=== PATIENT | male | born 1955 | race Caucasian/White ===

== ENCOUNTER 2021-02-09 21:13 | Emergency (ER) | payer MEDICARE, SELFPAY ==
[2021-02-09 21:27] VITALS: BP 136/84; PULSE 100; RESP 24; TEMP 37.3; O2SAT 90; BMI 30.7
[2021-02-09 21:48] VITALS: BP 154/116; PULSE 95; O2SAT 91
[2021-02-09 22:27] VITALS: PULSE 93; RESP 16; TEMP 37.2; O2SAT 93
[2021-02-09 22:58] VITALS: BP 141/83; PULSE 86; RESP 20; O2SAT 94
--- NOTE | 2021-02-09 23:04 | ED_ITS ---
HPI - General Adult General: Chief complaint: COVID symptoms Stated complaint: covid +/sob Time Seen by Provider: 02/09/21 22:04 History of Present Illness: HPI narrative: CC: Shortness of breath, fever and generalized weakness HPI: This is a 65 yo patient w/ no PMH presenting to the ED with malaise, generalized weakness, cough sputum production, and fever at home x 7days. Patient went to [facility] and was diagnosed with COVID infection, discharged on prednisone. Since discharge 1 day ago, patient has not noticed improvement in symptoms and presents for evaluation. is sick at home with covid. Denies chest pain, N/V, diaphoresis. Denies any pleuritic chest pain, recent surgery/immobilization/travel, or hematemesis or hx of VTE in the past. Onset: 7 days ago Duration: ongoing for the last 7 days Location: home Severity: moderate Review of Systems Narrative: Constitutional: +subjective fever, +generalized weakness HEENT: No vision changes CV: No chest pain, no palpitations PULM: +cough, +dyspnea. GI: No abdominal pain, no N/V/D. : No dysuria MSKEL: No muscle pain SKIN: No new rashes, no lesions. NEURO: No headache, no focal weakness. HEME: No visible bruises PSYCH: Normal mood Physical Exam Narrative: EXAM NARRATIVE: Head: Atraumatic Eyes: PERRL, conjunctiva without injection ENT: Mucous membrane moist NECK: Supple without lymphadenopathy LUNGS: Coarse lung sounds, CV: RRR ABDOMEN: Soft, nontender EXTREMITY: Normal ROM SKIN: No rash or erythema NEURO: Awake and alert. No focal motor deficits. PSYCH: Normal mood and affect. Course Vital Signs: Vital signs: Vital Signs Temperature 98.9 F 02/10/21 04:59 Pulse Rate 76 02/10/21 04:59 Respiratory Rate 20 H 02/10/21 04:59 Blood Pressure 149/66 02/10/21 04:59 Pulse Oximetry 94 02/10/21 04:59 MDM - General Adult MDM Narrative: Medical decision making narrative: 65yo patient presenting to the ED with shortness of breath, cough, and malaise concerning for pneumonia with findings of fever, coarse breath sounds, and tachypnea. Workup today includes XR chest Defer lab work at this time given that the patient is well appearing with stable vital signs and without recent hospitalization or care facility stay. Given History, Exam, and Workup presentation most consistent with pneumonia.Presentation not consistent with PE, COPD exacerbation, Pneumothorax, TB, Atypical ACS, Esophageal Rupture, Toxic Exposure, Foreign Body Airway Obstruction. Workup: CXR Chest, COVID antigen/ COVID PCR send out Intervention: Tylenol 1gram, PO challenge, serial reassessment, oxygen, de cadron, remdesivir [12:39] On reassessment, [XR findings of ground-glass opacity. Covid test positive today. Findings consistent with viral pneumonia, suspected COVID. Afebrile currently. Patient continues to sat at 94% on 5L oxygen. Given concerns for possible respiratory decompensation, I have offered patient admission for serial/close observation in the emergency room. At 1:30, patient declined admission citing strong desire to go home on home oxygen. I have discussed the risks of leaving hospital today including risks of sudden pulmonary decompensation leading to severe respiratory distress and even . Patient verbalizes understanding the consequence of the risks of leaving the hospital today and alternative including staying for serial observation. I have offered patient outpatient oxygen tank/supply and portable pulse ox with proper instruction to use at home. Patient agrees to monitor oxygen saturation and to come back to the ED if there is any drops in pulse ox reading despite oxygen use. In addition, I have given patient strict follow up with PCP in 24 hrs for reevalutaion. Patient verbalizes understanding of all components of our discussion today and reassures me of follow up with PCP and close monitoring. Lab Data: Labs: Lab Results 02/09/21 Range/Units 23:33 SARS-CoV-2 Ag (Rap id) Positive H (Negative) Imaging Data^: Other Imaging: Radiologist's impression: [address] [id number] ReportSigned Patient: Nunu Hayward #: [id number]: 7Acct#:[id number]/Sex: 65 / MADM Date: 02/09/21Loc: ERRoom/Bed:Attending Dr: Ordering Provider/Ordering MD: Derian Underwood MD Date of Service: 02/09/21 Procedure(s): XR chest 1V portable [id number] Accession Number(s): [id number] Report Number: [id number] PROCEDURE INFORMATION: Exam: XR Chest Exam date and time: 02/09/2021 11:22 PM Age: 65 years old Clinical indication: Cough and fever and shortness of breath; Prior surgery; Surgery type: Lung lobectomy; Patient HX: HX of liver, lung, and colon cancer; Additional info: Evaluate for covid TECHNIQUE: Imaging protocol: XR of the chest. Views: 1 view. COMPARISON: No relevant prior studies available. FINDINGS: Lungs: Surgical clips in the left hilum. Coarse reticular interstitial opacities. Pleural spaces: Unremarkable. No pleural effusion. No pneumothorax. Heart/Mediastinum: Cardiac silhouette is unremarkable. Bones/joints: Unremarkable. XR/XR chest 1V portable [id number] IMPRESSION: Prominent interstitial lung changes. Atypical pneumonia is in the differential such as viral pneumonia process. Dictated By:Ayesha Davies By:Ayesha Davies Date/Time:02/10/21 0043DD/ 004 Discharge Plan Discharge Patient Disposition: Home Clinical Impression: Suspected severe acute respiratory syndrome coronavirus 2 (SARS-CoV-2) infection Condition: Stable Discharge Orders: Discharge ED (Routine); Ordered 02/10/21 Ordered By: Derian Underwood Other Ambulatory Orders: DME: Oxygen (Order) Location: None Selected Ordered By: Derian Underwood Discharge Diet: Regular Discharge Activity: Resume usual activity Patient Instructions: Severe Acute Respiratory Syndrome (SARS) (ED) Activity Restrictions/Additional Instructions: Use your home oxygen as needed. Come back to the emergency room if your symptoms worsen, if you have any new or concerning complaints, have any other issues. Coding Level of Care Code ED Accounts Receivable Accountant for Pete Milan
--- NOTE | 2021-02-09 23:22 | XRR_ITS ---
PROCEDURE INFORMATION: Exam: XR Chest Exam date and time: 02/09/2021 11:22 PM Age: 65 years old Clinical indication: Cough and fever and shortness of breath; Prior surgery; Surgery type: Lung lobectomy; Patient HX: HX of liver, lung, and colon cancer; Additional info: Evaluate for covid TECHNIQUE: Imaging protocol: XR of the chest. Views: 1 view. COMPARISON: No relevant prior studies available. FINDINGS: Lungs: Surgical clips in the left hilum. Coarse reticular interstitial opacities. Pleural spaces: Unremarkable. No pleural effusion. No pneumothorax. Heart/Mediastinum: Cardiac silhouette is unremarkable. Bones/joints: Unremarkable. XR/XR chest 1V portable [id number] IMPRESSION: Prominent interstitial lung changes. Atypical pneumonia is in the differential such as viral pneumonia process.
[2021-02-09 23:41] VITALS: BP 163/111; PULSE 84; RESP 20; O2SAT 92
[2021-02-09] MEDS: acetaminophen 500 mg Tablet 1000 MG PO (23:45)
[2021-02-10 00:08] LABS: SARS Covid-2 Antigen Positive (Negative)
[2021-02-10] MEDS: dexamethasone 10 mg/mL INJ 6 MG IVP (01:03)
[2021-02-10] MEDS: remdesivir 200 MG in sodium chloride 0.9% (100 ml) 100 ML 100 MG IV (01:10)
[2021-02-10 01:25] VITALS: BP 160/101; PULSE 77; RESP 20; O2SAT 94
[2021-02-10 03:00] VITALS: BP 148/82; PULSE 69; RESP 28; O2SAT 94
[2021-02-10 04:59] VITALS: BP 149/66; PULSE 76; RESP 20; TEMP 37.2; O2SAT 94
== END 2021-02-10 05:01 | disposition home or self-care (01) ==
PROVIDERS: Emergency Provider Emergency Medicine
DX: U07.1 COVID-19 (principal)
CPT/HCPCS: 71045; 87426; 96365; 96375; 99284; J1100

== ENCOUNTER 2021-02-15 11:50 | Inpatient (IN) | payer MEDICARE, SELFPAY ==
[2021-02-15] VITALS (12 sets, daily range): BP systolic 96–146; BP diastolic 67–91; PULSE 68–107; RESP 16–22; TEMP 36.7–37.1; O2SAT 88–95
--- NOTE | 2021-02-15 12:30 | XR_ITS ---
WS: [id number] PORTABLE CHEST HISTORY: COVID, SOB COMPARISON: 02/09/2021 Increasing areas of consolidations or large portion of the RIGHT lung, greatest in the middle and low er lung lawler. Additional increasing opacifications throughout the mid and lower LEFT lung but to a lesser extent. No pleural effusion or pneumothorax. Cardiac size: Normal. Mediastinum/Aorta: Mild atherosclerosis aorta. Number surgical clips noted at the LEFT hilum. No osseous abnormality seen. XR/XR chest 1V portable [id number] IMPRESSION: Significant increase in bilateral pulmonary opacifications. Consider pneumoniti s and pneumonia.
--- NOTE | 2021-02-15 12:31 | ED_ITS ---
HPI - COVID General: Chief Complaint: Shortness of Breath/Dyspnea Stated Complaint: SOB, covid +, low o2 Time Seen by Provider: 02/15/21 12:14 Source: patient Mode of arrival: ambulatory Limitations: no limitations Triage information: Has fever, cough or shortness of breath . Exposure to COVID + person last 14 days History of Present Illness: HPI Narrative: Patient is a 65-year-old male who presents to ED today with a complaint of worsening shortness of breath. Patient tested positive for COVID on 02/09/2021 here in the ED. He was offered admission at that time as he was requiring 5L O2 via NC but patient declined and wanted to go home. He states since that time SOB is worsening and states the 5L is only allowing him to sat at 88%. He states COVID symptoms first started around 8/2. PMH significant for HTN. He reports body aches. No fevers. Has some mild chest pains. MD complaint: known COVID positive Prior covid testing: yes, results known Prior testing date: 02/09/21 COVID 19 common symptoms: positive non-productive cough, dyspnea, fatigue and body aches; negative fever(s), chills, headache(s), throat pain, nasal congestion, nausea, vomiting or diarrhea COVID 19 other sytmptoms: positive chest pain and requiring more oxygen Onset (ago): day(s) Severity: moderate and slowly worsening Pertinent comorbid conditions: hypertension Treatment prior to arrival: oxygen COVID Results: SARS-CoV-2 Antigen (Rapid) Positive (Negative) H 02/09/21 23:33 02/09/21 Review of Systems Const: Reports: body aches and fatigue; Denies: fever(s), chills, change in appetite or change in weight Eyes: Denies: change in vision ENMT: Denies: throat pain, odynophagia, nasal discharge or nasal congestion Card: Reports: chest pain and dyspnea on exertion; Denies: palpitations, irregular heart rhythm, edema, swelling of feet/ankles, lightheadedness, syncope, pre-syncope, leg pain with exertion or acrocyanosis Resp: Reports: dyspnea and non-productive cough; Denies: wheezing or hemoptysis GI: Denies: abdominal pain, nausea, vomiting or diarrhea Musc: Denies: neck pain, back pain, extremity pain or joint pain Skin/Breast: Denies: rash Neuro: Denies: headache(s), numbness in extremities, weakness in extremities or sensory changes Physical Exam Const: COMMON NORMALS: no acute distress, average body habitus, patient oriented x3, no limitations, healthy appearing, alert and well nourished GENERAL APPEARANCE: cooperative ORIENTATION/CONSCIOUSNESS: Yes awake, Yes oriented to person, Yes oriented to place and Yes oriented to time OTHER: pt is hypoxic but does not appear in any significant respiratory distress HENMT: COMMON NORMALS: normocephalic and atraumatic HEAD & SCALP: normocephalic and atraumatic Resp: COMMON NORMALS: normal respiratory effort, No use of accessory muscles and clear to auscultation bilaterally EFFORT & INSPECTION: Yes able to speak in complete sentences and Yes tachypneic (mild) AUSCULTATION: clear to auscultation bilaterally Cardio: COMMON NORMALS: regular rhythm RATE: tachycardic (mild) RHYTHM: regular rhythm GI: COMMON NORMALS: Normal to inspection, nondistended, normoactive bowel sounds present, Soft to palpation, non-tender, No hepatosplenomegaly present and no masses PALPATION: Yes Soft to palpation and Yes No hepatosplenomegaly present Extremity: COMMON NORMALS: capillary refill normal, no clubbing, cyanosis or edema, no calf tenderness and no pedal edema Neuro: VENKAT COMA SCALE: document GCS findings Clayton coma scale eye opening: Spontaneous Venkat coma scale verbal response: Orientated Clayton coma scale motor response: Obey commands Venkat coma scale total score: 15 COMMON NORMALS: patient oriented x3 SENSORIUM/ORIENTATION: Yes alert, Yes oriented to person, Yes oriented to place and Yes oriented to time Skin: COMMON NORMALS: no rashes or lesions noted GENERAL SKIN EXAM: no rashes or lesions noted TRAUMA: no lacerations or abrasions Course ED course: Upon arrival patient satting in mid 80s with 5-6L O2 NC. He was placed on 15L non-rebreather and sats hovering around 90%. RT contacted and will come try heated high flow Consultations: Consultation #1: Dr. Ramirez-accepts admission Vital Signs: Vital signs: Vital Signs Temperature 98.8 F 02/15/21 12:07 Pulse Rate 89 02/15/21 13:25 Respiratory Rate 17 08/18/21 13:25 Blood Pressure 130/89 08/18/21 13:25 Pulse Oximetry 92 02/15/21 13:25 MDM - COVID MDM Narrative: Medical decision making narrative: Patient requiring heated high flow oxygen to maintain saturations. CXR is significantly worse than previous. At this time patient requires hospitalization for further treatment. His D-dimer is greater than 20. CTA pending as CT is currently awaiting an incoming stroke patient. He was given Lovenox here. Spoke with Dr. River who agrees with work up and plan for patient. Spoke to hospitalist Dr. Ramirez who accepts admission. Lab Data: Labs: Lab Results 02/15/21 02/15/21 02/15/21 Range/Units 12:30 12:30 12:30 WBC 12.7 H (4.0-10.0) 10^3/ uL RBC 4.97 (4.1-5.3) 10^6/u L Hgb 15.8 (11.7-16.6) g/dL Hct 47.1 (42.0-52.0) % MCV 94.8 H (80-94) fl MCH 31.8 (28.0-34.0) pg MCHC 33.5 (30.0-36.0) g/dL RDW 12.6 (12.1-15.1) % Plt Count 281 (130-400) 10^3/c mm MPV 10.0 (7.4-10.4) fL Neut % (Auto) 86.0 % Lymph % (Auto) 5.4 % [place] % (Auto) 4.5 % Eos % (Auto) 1.6 % Baso % (Auto) 0.4 % Neut # (Auto) 10.95 H (1.8-7.7) 10^3/u L Lymph # (Auto) 0.7 L (0.8-4.8) 10^3/u L [place] # (Auto) 0.6 (0.2-0.9) 10^3/u L Eos # (Auto) 0.2 (0.0-0.8) 10^3/u L Baso # (Auto) 0.1 (0.0-0.1) 10^3/u L Nucleated RBC % (a uto) 0 % Nucleated RBCs # 0.0 /100WBC PT (12.1-14.9) SECO NDS INR (0.8-1.2) APTT (23.9-36.7) SECO NDS Fibrinogen (174-498) mg/dL D-Dimer (0-0.59) ug/mIFE U Specimen Type Sample Site ABG pH (7.35-7.45) ABG pCO2 (35-45) mmHg ABG pO2 (80.0-100.0) mmH g ABG HCO3 (22-26) mmol/L ABG O2 Saturation ABG Base Excess (-2.0-2.0) mmol/ L Tanner Test A-a O2 Gradient (5-10) mmHg Hematocrit (42-52) % Hgb O2 Saturation (95-100) % Carboxyhemoglobin (0.4-20.1) %THgb Methemoglobin (0.4-1.5) % Total Hemoglobin (14-18) g/dL Ionized Calcium (1.1-1.4) mmol/L O2 Delivery Device O2 Liters/Min % FiO2 % Attending Physician ID Sodium 141 (136-145) mmol/L Potassium 3.7 (3.5-5.1) mmol/L Chloride 105 (98-107) mmol/L Carbon Dioxide 26 (22-29) mmol/L Anion Gap 13.7 (5-19) BUN 25 H (8-23) mg/dL Creatinine 0.8 (0.7-1.2) mg/dL GFR Calculation 97.3 (90-130) mL/min Glucose 124 H (65-115) mg/dL Calculated Osmolal ity 298 H (285-295) mOsm/k g Lactic Acid 2.0 (0.5-2.2) mmol/L Calcium 8.4 L (8.5-10.5) mg/dL Ferritin 1155 H (30-400) ng/mL Total Bilirubin 0.2 (0.15-1.2) mg/dL AST 27 (0-40) U/L ALT 42 H (0-41) U/L Alkaline Phosphata se 145 H (40-130) IU/L Troponin T Gen 5 n g/L (0-15) ng/L C-Reactive Protein 78.9 H (0.0-4.9) mg/L NT-Pro-B Natriuret Pep (0-125) pg/mL Total Protein 6.5 L (6.6-8.7) g/dL Albumin 3.1 L (3.5-5.2) g/dL Globulin 3.4 (1.3-4.6) g/dL Procalcitonin 0.07 (0-0.5) ng/mL 02/15/21 02/15/21 02/15/21 Range/Units 12:30 12:30 12:30 WBC (4.0-10.0) 10^3/ uL RBC (4.1-5.3) 10^6/u L Hgb (11.7-16.6) g/dL Hct (42.0-52.0) % MCV (80-94) fl MCH (28.0-34.0) pg MCHC (30.0-36.0) g/dL RDW (12.1-15.1) % Plt Count (130-400) 10^3/c mm MPV (7.4-10.4) fL Neut % (Auto) % Lymph % (Auto) % [place] % (Auto) % Eos % (Auto) % Baso % (Auto) % Neut # (Auto) (1.8-7.7) 10^3/u L Lymph # (Auto) (0.8-4.8) 10^3/u L [place] # (Auto) (0.2-0.9) 10^3/u L Eos # (Auto) (0.0-0.8) 10^3/u L Baso # (Auto) (0.0-0.1) 10^3/u L Nucleated RBC % (a uto) % Nucleated RBCs # /100WBC PT 13.90 (12.1-14.9) SECO NDS INR 1.04 (0.8-1.2) APTT 23.8 L (23.9-36.7) SECO NDS Fibrinogen 379 (174-498) mg/dL D-Dimer >= 20.00 H (0-0.59) ug/mIFE U Specimen Type Sample Site ABG pH (7.35-7.45) ABG pCO2 (35-45) mmHg ABG pO2 (80.0-100.0) mmH g ABG HCO3 (22-26) mmol/L ABG O2 Saturation ABG Base Excess (-2.0-2.0) mmol/ L Tanner Test A-a O2 Gradient (5-10) mmHg Hematocrit (42-52) % Hgb O2 Saturation (95-100) % Carboxyhemoglobin (0.4-20.1) %THgb Methemoglobin (0.4-1.5) % Total Hemoglobin (14-18) g/dL Ionized Calcium (1.1-1.4) mmol/L O2 Delivery Device O2 Liters/Min % FiO2 % Attending Physician ID Sodium (136-145) mmol/L Potassium (3.5-5.1) mmol/L Chloride (98-107) mmol/L Carbon Dioxide (22-29) mmol/L Anion Gap (5-19) BUN (8-23) mg/dL Creatinine (0.7-1.2) mg/dL GFR Calculation (90-130) mL/min Glucose (65-115) mg/dL Calculated Osmolal ity (285-295) mOsm/k g Lactic Acid (0.5-2.2) mmol/L Calcium (8.5-10.5) mg/dL Ferritin (30-400) ng/mL Total Bilirubin (0.15-1.2) mg/dL AST (0-40) U/L ALT (0-41) U/L Alkaline Phosphata se (40-130) IU/L Troponin T Gen 5 n g/L 21 H (0-15) ng/L C-Reactive Protein (0.0-4.9) mg/L NT-Pro-B Natriuret Pep 404 H (0-125) pg/mL Total Protein (6.6-8.7) g/dL Albumin (3.5-5.2) g/dL Globulin (1.3-4.6) g/dL Procalcitonin (0-0.5) ng/mL 02/15/21 Range/Units 13:16 WBC (4.0-10.0) 10^3/ uL RBC (4.1-5.3) 10^6/u L Hgb (11.7-16.6) g/dL Hct (42.0-52.0) % MCV (80-94) fl MCH (28.0-34.0) pg MCHC (30.0-36.0) g/dL RDW (12.1-15.1) % Plt Count (130-400) 10^3/c mm MPV (7.4-10.4) fL Neut % (Auto) % Lymph % (Auto) % [place] % (Auto) % Eos % (Auto) % Baso % (Auto) % Neut # (Auto) (1.8-7.7) 10^3/u L Lymph # (Auto) (0.8-4.8) 10^3/u L [place] # (Auto) (0.2-0.9) 10^3/u L Eos # (Auto) (0.0-0.8) 10^3/u L Baso # (Auto) (0.0-0.1) 10^3/u L Nucleated RBC % (a uto) % Nucleated RBCs # /100WBC PT (12.1-14.9) SECO NDS INR (0.8-1.2) APTT (23.9-36.7) SECO NDS Fibrinogen (174-498) mg/dL D-Dimer (0-0.59) ug/mIFE U Specimen Type Arterial Sample Site Radial, left ABG pH 7.51 H (7.35-7.45) ABG pCO2 31.1 L (35-45) mmHg ABG pO2 61.5 L (80.0-100.0) mmH g ABG HCO3 24.5 (22-26) mmol/L ABG O2 Saturation 92.9 ABG Base Excess 2.2 H (-2.0-2.0) mmol/ L Tanner Test Pos A-a O2 Gradient 44.5 H (5-10) mmHg Hematocrit 46.5 (42-52) % Hgb O2 Saturation 91.5 L (95-100) % Carboxyhemoglobin 0.6 (0.4-20.1) %THgb Methemoglobin 1.0 (0.4-1.5) % Total Hemoglobin 15.2 (14-18) g/dL Ionized Calcium 1.2 (1.1-1.4) mmol/L O2 Delivery Device Hag O2 Liters/Min 50.0 % FiO2 62.0 % Attending Physician ID Ed Sodium 142.0 (136-145) mmol/L Potassium 3.5 (3.5-5.1) mmol/L Chloride (98-107) mmol/L Carbon Dioxide (22-29) mmol/L Anion Gap (5-19) BUN (8-23) mg/dL Creatinine (0.7-1.2) mg/dL GFR Calculation (90-130) mL/min Glucose 111.0 (65-115) mg/dL Calculated Osmolal ity (285-295) mOsm/k g Lactic Acid (0.5-2.2) mmol/L Calcium (8.5-10.5) mg/dL Ferritin (30-400) ng/mL Total Bilirubin (0.15-1.2) mg/dL AST (0-40) U/L ALT (0-41) U/L Alkaline Phosphata se (40-130) IU/L Troponin T Gen 5 n g/L (0-15) ng/L C-Reactive Protein (0.0-4.9) mg/L NT-Pro-B Natriuret Pep (0-125) pg/mL Total Protein (6.6-8.7) g/dL Albumin (3.5-5.2) g/dL Globulin (1.3-4.6) g/dL Procalcitonin (0-0.5) ng/mL Imaging Data: CXR: Radiologist's impression: [address] [id number] ReportSigned Patient: Nunu Hayward #: [id number]: [id number]#:[id number]/Sex: 65 / MADM Date: 02/15/21Loc: ERRoom/Bed:Attending Dr: Ordering Provider/Ordering MD: Kelsie Martini Date of Service: 02/15/21 Procedure(s): XR chest 1V portable [id number] Accession Number(s): [id number] Report Number: [id number] WS: [email or web address] PORTABLE CHEST HISTORY: COVID, SOB COMPARISON: 02/09/2021 Increasing areas of consolidations or large portion of the RIGHT lung, greatest in the middle and lower lung lawler. Additional increasing opacifications throughout the mid and lower LEFT lung but to a lesser extent. No pleural effusion or pneumothorax. Cardiac size: Normal. Mediastinum/Aorta: Mild atherosclerosis aorta. Number surgical clips noted at the LEFT hilum. No osseous abnormality seen. XR/XR chest 1V portable [id number] IMPRESSION: Significant increase in bilateral pulmonary opacifications. Consider pneumonitis and pneumonia. Dictated By:Hellen Deleon DOSigned By:Hellen Deleon DOSigned Date/Time:02/15/21 1252DD/ 1250 CTA chest: Radiologist's impression: [address] [place] [address] CT Scan Report Signed Patient: Jose Hayward Unit #: [id number] : 1955 Age/Sex: 65 / M ADM Date: 02/15/21 Loc: ER Room/Bed: Attending Dr: Ordering Provider/Ordering MD: Kelsie Martini Date of Service: 02/15/21 Procedure(s): CT angio chest PE protcl [id number] Accession Number(s): [id number] Report Number: [id number] WS: [email or web address] CT CHEST ANGIOGRAPHY WITH REFORMATS HISTORY: SOB, COVID; extremely high d dimer TECHNIQUE: Contiguous axial images are obtained through the chest during arterial injection of intravenous contrast. Images are reconstructed to evaluate the pulmonary arteries. MIP imaging also reviewed. All CT scans at [facility] use at least one of these dose optimization techniques: automated exposure control; mA and/or kV adjustment per patient size (includes targeted exams where dose is matched to clinical indication); or iterative reconstruction. CONTRAST: Omnipaque 350; 95 mL IV. DLP: 552.31 mGy.cm COMPARISON: None available. Good opacification of the pulmonary arteries. There is a focal defect in the LEFT main pulmonary artery consistent with nonocclusive emboli. Segmental emboli noted branching pattern in the LEFT lower lobe. No additional emboli. Pulmonary artery size is normal. Mild atherosclerosis of aorta. Heart is normal size with no pericardial effusion. There is extensive bilateral pulmonary consolidations and to a lesser extent groundglass attenuation involving all lobes. Greater disease within the RIGHT lung. Mediastinal and hilar lymphadenopathy is probably reactive. Postsurgical sutures are noted at the LEFT hilum. Visualized upper abdomen structures are normal. No destructive bone lesions. CT/CT angio chest PE protcl [id number] IMPRESSION: 1. LEFT main nonocclusive pulmonary emboli and segmental emboli LEFT lower lobe. 2. Diffuse bilateral opacifications consistent with Covid 19, greater on the RIGHT than the LEFT. 3. Mediastinal and hilar lymphadenopathy. Likely reactive. Patient does have a history of lung cancer with no prior studies for comparison. Metastatic involvement not excluded involving the lymph nodes. Dictated By: Hellen Deleon DO Signed By: Hellen Deleon DO Signed Date/Time: 02/15/21 1453 DD/ 1441 COVID Results: SARS-CoV-2 Antigen (Rapid) Positive (Negative) H 02/09/21 23:33 02/09/21 Discharge Plan Discharge Patient Disposition: Admitted As Inpatient Clinical Impression: Pneumonia due to severe acute respiratory syndrome coronavirus 2 (SARS-CoV-2), Pulmonary embolism, Acute hypoxemic respiratory failure due to severe acute respiratory syndrome coronavirus 2 (SARS-CoV-2) disease Condition: Stable Coding Level of Care Code ED Safety Pin Assembling Machine Operator for Pete Fwd Exam Comprehensive
[2021-02-15 12:43] LABS: Basophils # 0.1 10^3/uL (0.0-0.1); Basophils % 0.4 %; Eosinophils # 0.2 10^3/uL (0.0-0.8); Eosinophils % 1.6 %; Hematocrit 47.1 % (42.0-52.0); Hemoglobin 15.8 g/dL (11.7-16.6); Lymphocytes # 0.7 10^3/uL (0.8-4.8); Lymphocytes % 5.4 %; Mean Corpuscular HGB Conc 33.5 g/dL (30.0-36.0); Mean Corpuscular Hemoglobin 31.8 pg (28.0-34.0); Mean Corpuscular Volume 94.8 fl (80-94); Monocytes # 0.6 10^3/uL (0.2-0.9); Monocytes % 4.5 %; Neutrophils # 10.95 10^3/uL (1.8-7.7); Nucleated Red Blood Cells % 0 %; Platelet Count 281 10^3/cmm (130-400); Red Blood Count 4.97 10^6/uL (4.1-5.3); Red Cell Distribution Width 12.6 % (12.1-15.1); White Blood Count 12.7 10^3/uL (4.0-10.0)
[2021-02-15 12:56] LABS: INR 1.04 (0.8-1.2)
[2021-02-15 12:57] LABS: Partial Thromboplastin Time 23.8 SECONDS (23.9-36.7)
[2021-02-15 12:58] LABS: Fibrinogen 379 mg/dL (174-498)
[2021-02-15 13:07] LABS: Alanine Aminotransferase 42 U/L (0-41); Albumin Level 3.1 g/dL (3.5-5.2); Alkaline Phosphatase 145 IU/L (40-130); Anion Gap 13.7 (5-19); Aspartate Amino Transferase 27 U/L (0-40); Blood Urea Nitrogen 25 mg/dL (8-23); C Reactive Protein 78.9 mg/L (0.0-4.9); Calcium 8.4 mg/dL (8.5-10.5); Carbon Dioxide 26 mmol/L (22-29); Chloride 105 mmol/L (98-107); Globulin 3.4 g/dL (1.3-4.6); Glomerular Filtration Rate 97.3 mL/min (90-130); Glucose 124 mg/dL (65-115); Osmolality Calculated 298 mOsm/kg (285-295); Potassium 3.7 mmol/L (3.5-5.1); Sodium 141 mmol/L (136-145); Total Bilirubin 0.2 mg/dL (0.15-1.2); Total Protein 6.5 g/dL (6.6-8.7)
[2021-02-15 13:13] LABS: Procalcitonin 0.07 ng/mL (0-0.5)
[2021-02-15 13:14] LABS: D Dimer >= 20.00 ug/mIFEU (0-0.59)
[2021-02-15 13:15] LABS: Troponin T (5th) Once 21 ng/L (0-15)
--- NOTE | 2021-02-15 13:16 | CT_ITS ---
WS: [email or web address] CT CHEST ANGIOGRAPHY WITH REFORMATS HISTORY: SOB, COVID; extremely high d dimer TECHNIQUE: Contiguous axial images are obtained through the chest during arterial injection of intrav enous contrast. Images are reconstructed to evaluate the pulmonary arteries. MIP imaging also reviewe d. All CT scans at [facility] use at least one of these dose optimization techniques: aut omated exposure control; mA and/or kV adjustment per patient size (includes targeted exams where dose is matched to clinical indication); or iterative reconstruction. CONTRAST: Omnipaque 350; 95 mL IV. DLP: 552.31 mGy.cm COMPARISON: None available. Good opacification of the pulmonary arteries. There is a focal defect in the LEFT main pulmonary myron ry consistent with nonocclusive emboli. Segmental emboli noted branching pattern in the LEFT lower lo be. No additional emboli. Pulmonary artery size is normal. Mild atherosclerosis of aorta. Heart is no rmal size with no pericardial effusion. There is extensive bilateral pulmonary consolidations and to a lesser extent groundglass attenuation involving all lobes. Greater disease within the RIGHT lung. Mediastinal and hilar lymphadenopathy is probably reactive. Postsurgical sutures are noted at the LEFT hilum. Visualized upper abdomen structures are normal. No destructive bone lesions. CT/CT angio chest PE protcl [id number] IMPRESSION: 1. LEFT main nonocclusive pulmonary emboli and segmental emboli LEFT lower lob e. 2. Diffuse bilateral opacifications consistent with Covid 19, greater on the R IGHT than the LEFT. 3. Mediastinal and hilar lymphadenopathy. Likely reactive. Patient does have a history of lung cancer with no prior studies for comparison. Metastatic involv ement not excluded involving the lymph nodes.
[2021-02-15 13:23] LABS: Ferritin 1155 ng/mL (30-400)
[2021-02-15 13:27] LABS: ABG PCO2 31.1 mmHg (35-45); ABG PH Result 7.51 (7.35-7.45); Arterial Blood Gas Hematocrit 46.5 % (42-52); Base Excess ABG 2.2 mmol/L (-2.0-2.0); Blood Gas Allen Test Pos; Blood Gas Sample Type Arterial; Carboxyhemoglobin 0.6 %THgb (0.4-20.1); HCO3 ABG 24.5 mmol/L (22-26); HGB O2 Sat 91.5 % (95-100); Ionized Calcium Level - ABG 1.2 mmol/L (1.1-1.4); Oxygen Saturation ABG 92.9; PO2 ABG 61.5 mmHg (80.0-100.0); Potassium Level - ABG 3.5 mmol/L (3.5-5.0); Total Hemoglobin 15.2 g/dL (14-18)
[2021-02-15 13:28] LABS: Alveolar-Arterial Oxygen Gradi 44.5 mmHg (5-10); Blood Gas Operator Identificat ED; Blood Gas Sample Site Radial, left; Oxygen Device HAG
[2021-02-15] MEDS: enoxaparin 100 mg/mL Syringe 90 MG SUBCUT (13:41)
[2021-02-15] MEDS: dexamethasone 4 mg/mL INJ 6 MG IVP (13:41)
[2021-02-15 13:45] LABS: NT Pro B Type Natriuretic Pept 404 pg/mL (0-125)
--- NOTE | 2021-02-15 13:48 | ECG_ITS ---
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 Measurements Intervals [place] Rate: 75 P: 34 W[place]: 145 QRS: 1 QRSD: 96 T: 24 QT: 369 QTc: 414 Interpretive Statements SINUS RHYTHM INCOMPLETE RIGHT BUNDLE BRANCH BLOCK [90+ ms QRS DURATION, TERMINAL R IN V1/V2, 40+ ms S IN I/aVL/V4/V5/V6] NONSPECIFIC T-WAVE ABNORMALITY No previous ECG available for comparison Electronically Signed On 02-17-2021 18:20:38 CDT by Ana Luisa Arguello M.D. [id number]
[2021-02-15] MEDS: iohexol 350 mg/mL 100 mL Btl IV (14:35)
--- NOTE | 2021-02-15 15:21 | PM.HP ---
Providers/Chief Complaint Primary Care Provider: Subhash Candelario Chief Complaint: SOB, covid +, low o2 History of Present Illness Jose Hayward is a 65 year old male for worsening symptoms of COVID-19 pneumonia. Patient was tested positive on 09 February, his symptoms started on 30 January. Patient refused hospitalization at that time and he was discharged home on 5 L. At home his symptoms worsened. Patient is stating that he has history of colon cancer which metastasized to his liver and lungs, he was first diagnosed in 2004 with colon cancer adenocarcinoma, in 2006 it metastasized to liver and 2008 to his lungs, he finished cycles of chemotherapy and then stop because of drug allergy. He never required any surgery. He did get radiotherapy for his liver metastases, status post lobectomy right lung, liver resection with seed implantation. If symptoms started in beginning of January. They have gradually worsened he was seen in the ER and refused admission and went home on 5 L. Coming back with chief complaint of worsening of fever, headache, nausea, vomiting, loose stools. Is also endorsing productive cough , mucoid yellow color sputum production. Temperature at home 101. No active chest pain. In the ER he was desaturating to 83% on 5 L nasal cannula he was switched to nonrebreather mask, oxygen improved to 88% eventually he required heated high flow to bring his O2 saturation up CTA revealed PE he received Lovenox dose before getting CTA because of high suspicion Review of Systems Const: Reports: fever(s), chills, body aches and fatigue Eyes: Denies: change in vision ENMT: Denies: throat pain Card: Denies: chest pain Resp: Reports: dyspnea and productive cough GI: Reports: diarrhea : Denies: flank pain Musc: Denies: neck pain Skin/Breast: Denies: rash Neuro: Denies: headache(s) Psych: Denies: anxiety Endo: Denies: polyuria Chuck/Lymph: Denies: easy bruising All/Imm: Denies: urticaria Medications/Allergies Home Medications Medication Instructions Recorded Confirmed Last Taken Type albuterol sulfate 2 puff INHALATION Q4H PRN 02/15/21 02/15/21 Unknown History doxazosin 4 mg PO BEDTIME MDD SEE PHARMACY 02/15/21 02/15/21 02/11/21 History COMMENT lisinopril 10 mg PO DAILY 02/15/21 02/15/21 02/11/21 History Allergies Allergy/AdvReac Type Severity Reaction Status Date / Time No Known Allergies Allergy Verified 02/10/21 01:03 PFSH Acute PFSH: Medical History (Updated 02/15/21 @ 18:57 by Mathew Ramirez MD) Chemotherapy declined Colon cancer Liver metastasis Lung cancer Radiotherapy Surgical History (Updated 02/15/21 @ 18:57 by Mathew Ramirez MD) H/O resection of liver Seed implantation History of lobectomy of lung Family History Denies family history of Chronic kidney disease (CKD) Family history of premature coronary artery disease Social History Smoking and tobacco status: former smoker Alcohol intake: never Substance/Drug Use: never Housing: House Marital status: Previous occupational history: worked for [employer] Vitals/I&O/Wt Last Vital Signs Temp 98.8 F 02/15/21 12:07 Pulse 89 02/15/21 13:25 Resp 17 02/15/21 13:25 BP 130/89 02/15/21 13:25 Pulse Ox 92 02/15/21 13:25 Data : 02/15/21 12:30 02/15/21 12:30 A&P Assessment and plan (1) Pneumonia due to severe acute respiratory syndrome coronavirus 2 (SARS-CoV-2): Status: Acute (2) Pulmonary embolism: Status: Acute Qualifiers: Acute cor pulmonale presence: unspecified Chronicity: acute Pulmonary embolism type: unspecified Qualified Code(s): I26.99 - Other pulmonary embolism without acute cor pulmonale (3) Acute respiratory failure with hypoxia: Status: Acute Additional A&P Information Acute hypoxic restaurant failure related to COVID-19 Worsening hypoxia Currently on 66% 45 L heated high flow No active chest pain No conversational dyspnea Afebrile during my evaluation Continue remdesivir and Decadron Would like to monitor for next 24 hours in order to see if he would qualify for interleukin-6 inhibitor, of note his symptoms started on January, considering his history of cancer and chemotherapy he may be considered immunocompromise but his last chemotherapy session was 10 years ago, will need reevaluation in the morning his CRP is above 75 Added multivitamins Procalcitonin unremarkable Would not add any antibiotics for now Acute pulmonary embolism Related to hypercoagulable state of COVID-19 Started on therapeutic dose of Lovenox High D-dimer Check venous Dopplers BNP 404 Requested echo Troponin XX 1, follow-up with second 6-hour No active chest pain hemodynamically stable History of colon cancer with metastases to liver and lung Status post right lobectomy liver resection with implantation of seeds in his liver As per the patient he has been in remission for last 10 years Full code Cardiac diet DVT prophylaxis currently on therapeutic dose of Lovenox Guarded prognosis Attestations Medical Necessity Statement*: Anticipating stay in the hospital cross more than 2 midnight Time Spent in Patient Care: Greater than 35 minutes Coding Level of Care Code Acute Material Assembler for [facility] Diagnoses Pneumonia due to severe acute respiratory syndrome coronavirus 2 (SARS-CoV-2) U07.1; J12.82 Pulmonary embolism I26.99 Acute cor pulmonale presence: unspecified Chronicity: acute Pulmonary embolism type: unspecified Acute respiratory failure with hypoxia J96.01
[2021-02-15] MEDS: ascorbic acid 500 mg Tablet PO (18:10)
[2021-02-15] MEDS: remdesivir 100 MG in sodium chloride 0.9% (100 ml) 100 ML IV (18:44)
--- NOTE | 2021-02-15 19:22 | PC.NURSE ---
Report to Cass LIZAMA at this time.
[2021-02-15] MEDS: albuterol 8 gm MDI 2 PUFF INHALATION (20:40)
[2021-02-15] MEDS: doxazosin 4 mg Tablet PO (22:53)
[2021-02-16] VITALS (17 sets, daily range): BP systolic 126–150; BP diastolic 77–94; PULSE 62–98; RESP 17–20; TEMP 36.5–36.8; O2SAT 89–95
[2021-02-16] MEDS: enoxaparin 100 mg/mL Syringe 90 MG SUBCUT ×2 (01:25→13:18)
[2021-02-16 05:15] LABS: Basophils % 0.3 %; Eosinophils # 0.1 10^3/uL (0.0-0.8); Eosinophils % 1.2 %; Hematocrit 41.4 % (42.0-52.0); Hemoglobin 13.6 g/dL (11.7-16.6); Lymphocytes # 0.8 10^3/uL (0.8-4.8); Lymphocytes % 8.2 %; Mean Corpuscular HGB Conc 32.9 g/dL (30.0-36.0); Mean Corpuscular Hemoglobin 31.3 pg (28.0-34.0); Mean Corpuscular Volume 95.4 fl (80-94); Mean Platelet Volume 10.1 fL (7.4-10.4); Monocytes # 0.5 10^3/uL (0.2-0.9); Monocytes % 4.9 %; Neutrophils % 82.3 %; Nucleated Red Blood Cells % 0 %; Platelet Count 304 10^3/cmm (130-400); Red Blood Count 4.34 10^6/uL (4.1-5.3); Red Cell Distribution Width 12.5 % (12.1-15.1); White Blood Count 10.1 10^3/uL (4.0-10.0)
[2021-02-16 05:34] LABS: Anion Gap 11.2 (5-19); Blood Urea Nitrogen 19 mg/dL (8-23); C Reactive Protein 61.7 mg/L (0.0-4.9); Calcium 8.2 mg/dL (8.5-10.5); Carbon Dioxide 25 mmol/L (22-29); Chloride 107 mmol/L (98-107); Glomerular Filtration Rate 135.6 mL/min (90-130); Glucose 109 mg/dL (65-115); Lactate Dehydrogenase 384 U/L (135-225); Osmolality Calculated 291 mOsm/kg (285-295); Potassium 4.2 mmol/L (3.5-5.1); Sodium 139 mmol/L (136-145)
--- NOTE | 2021-02-16 06:00 | USCV_ITS ---
Jose Hayward Age: 65 Gender: M : 1955 Exam Date: 02/16/2021 06:45 Ordering Phys: Mathew Ramirez MD Technologist: Exam Location: [facility] [place] Indication: ? DVT HISTORY: Lower extremity swelling. PROCEDURES: The venous duplex Doppler examination of both lower extremities was performed in the standard fashion. The following venous structures were evaluated: common femoral vein, profunda vein, proximal portion of the greater saphenous vein, superficial femoral vein, and the popliteal vein. In addition, the posterior tibial and peroneal trunk were evaluated. Bilaterally, the common femoral, superficial femoral, profunda femoral, popliteal, posterior tibial, greater saphenous veins, and the peroneal trunk were identified and interrogated in the standard fashion. These veins were found to be easily compressible with spontaneous blood flow. No evidence of insufficiency or thrombus noted. FINDINGS: Normal 2-D Doppler and augmentation and compressibility throughout the lower extremity venous structures. Additional imaging through the proximal calf veins also reveals no thrombus. Limited evaluation of the greater saphenous vein is patent with no thrombus.. CONCLUSIONS No evidence of DVT in the above-mentioned identifiable veins. Dr Mohsen Anderson MD [facility] (Electronically Signed) Final Date: 16 February 2021 18:45 S
--- NOTE | 2021-02-16 06:00 | USCV_ITS ---
Hayward Jose Age: 65 Gender: M : 1955 Exam Date: 02/16/2021 06:32 Ordering Phys: Mathew Ramirez MD Technologist: Exam Location: [facility] [place] Indication: PE BP: 150 / 94 HR: 71 Rhythm: Sinus Technical Quality: Adequate MEASUREMENTS (Male / Female) Normal Values 2D ECHO LV Diastolic Diameter PLAX 6.1 cm 4.2 - 5.9 / 3.9 - 5.3 cm LV Systolic Diameter PLAX 4.7 cm IVS Diastolic Thickness 1.1 cm 0.6 - 1.0 / 0.6 - 0.9 cm IVS Systolic Thickness 1.4 cm LVPW Diastolic Thickness 1.1 cm 0.6 - 1.0 / 0.6 - 0.9 cm LVPW Systolic Thickness 1.4 cm LVOT Diameter 2.1 cm LV Ejection Fraction 2D Teich 41.3 % LV Ejection Fraction MOD 2C 60.4 % LV Ejection Fraction 2C AL 60.5 % LA Diameter 3.4 cm LA Width 3.4 cm LA Height 5.2 cm RA Width 3.7 cm RA Height 5.2 cm Aorta at Sinotubular Diameter 3.2 cm M-MODE LV Diastolic Diameter MM 6.1 cm 4.2 - 5.9 / 3.9 - 5.3 cm LV Systolic Diameter MM 4.2 cm LV Ejection Fraction MM Teich 59.0 % IVS Diastolic Thickness MM 1.4 cm 0.6 - 1.0 / 0.6 - 0.9 cm IVS Systolic Thickness MM 1.8 cm LVPW Diastolic Thickness MM 1.3 cm 0.6 - 1.0 / 0.6 - 0.9 cm LVPW Systolic Thickness MM 2.4 cm RV Diastolic Diameter MM 1.6 cm DOPPLER AV Peak Velocity 158.0 cm/s LVOT Peak Velocity 107.0 cm/s AV Area Cont Eq vti 2.1 cm squared AV Area Cont Eq pk 2.3 cm squared MV Area PHT 5.0 cm squared Mitral E to A Ratio 0.6 MV E' Velocity 30.5 cm/s Mitral E to MV E' Ratio 11.1 Mitral E to LV E' Lateral Ratio 10.7 Mitral E to LV E' Septal Ratio 11.6 TR Peak Velocity 148.0 cm/s TR Peak Gradient 8.8 mmHg TV Peak E Velocity 67.0 cm/s Right Atrial Pressure 3.0 mmHg Pulmonary Artery Systolic Pressu 11.8 mmHg FINDINGS Left Ventricle Normal left ventricular size and systolic function, EF 65 %. No regional wall motion abnormalities. Grade I/IV diastolic dysfunction (abnormal relaxation filling pattern), normal to mildly elevated filling pressures. Mild left ventricular hypertrophy. Right Ventricle The right ventricle is normal in size and function. Right Atrium The right atrium is normal in size. Left Atrium The left atrium is normal in size. Mitral Valve Trace to mild mitral valve regurgitation. Aortic Valve No gross abnormalities noted Tricuspid Valve Trace tricuspid valve regurgitation. Pulmonic Valve Pulmonic valve not well visualized. Pericardium Normal pericardium without effusion. Aorta Normal ascending aorta dimension. CONCLUSIONS Normal left ventricular size and systolic function, EF 65 %. No regional wall motion abnormalities. Grade I/IV diastolic dysfunction (abnormal relaxation filling pattern), normal to mildly elevated filling pressures. Mild left ventricular hypertrophy. The right ventricle is normal in size and function. Trace to mild mitral valve regurgitation. Trace tricuspid valve regurgitation. Possibly normal pulmonary artery pressure. There is no pericardial effusion. There are no intracardiac masses. No previous study is available for comparison. Dr Mohsen Anderson MD [facility] (Electronically Signed) Final Date: 16 February 2021 10:40 S
[2021-02-16] MEDS: albuterol 8 gm MDI 2 PUFF INHALATION (08:20)
[2021-02-16] MEDS: zinc gluconate 50 mg Tablet PO (09:34)
[2021-02-16] MEDS: dexamethasone 4 mg Tablet 6 MG PO (09:34)
[2021-02-16] MEDS: lisinopril 10 mg Tablet PO (09:34)
[2021-02-16] MEDS: sennosides-docusate Tablet 1 TAB PO (09:34)
[2021-02-16] MEDS: cholecalciferol (vitamin D3) 1,000 unit Tablet 1000 UNIT PO (09:34)
[2021-02-16] MEDS: ascorbic acid 500 mg Tablet PO ×2 (09:35→18:12)
[2021-02-16] MEDS: cefTRIAXone 1,000 MG in sodium chloride 0.9% (plus) 50 ML 100 MG IV (09:42)
[2021-02-16] MEDS: budesonide 0.5 mg/2 mL Neb INHALATION (10:55)
--- NOTE | 2021-02-16 11:24 | CT_ITS ---
WS: [id number] CT ABDOMEN AND PELVIS NONCONTRAST HISTORY: hx of colon ca with liver mets, no with pe TECHNIQUE: Imaging performed through the abdomen and pelvis. Coronal and sagittal reformats are submi tted. All CT scans at [facility] use at least one of these dose optimization techniques: automated exposure control; mA and/or kV adjustment per patient size (includes targeted exams where d ose is matched to clinical indication); or iterative reconstruction. DLP: 1954.04 mGy.cm COMPARISON: 02/15/2021 Lower thorax: Dense areas of consolidation at the lung bases. Typical for pneumonitis associated with Covid. Underlying metastatic nodules would be obscured. Heart is slightly enlarged. Small hiatal her milton. Liver: Enlarged dense liver. No mass or bile duct dilatation. Gallbladder: Shrunken gallbladder with increased density from contrast injection the previous day. Pancreas: Normal size and attenuation. Normal pancreatic duct. No pancreatitis or mass. Spleen: Normal. Adrenal glands: Normal. No mass. Right kidney: Mild perinephric stranding. Low-attenuation 16 mm nodule in the mid kidney. No renal ob struction. Left kidney: Mild perinephric stranding with no obstruction. Low-attenuation 12 mm nodule in the post erior mid kidney. Aorta: Normal abdominal aorta, no aneurysm or atherosclerosis. No free fluid, intraperitoneal air or significant lymphadenopathy. GI tract: Appendix is not definitely identified. Anastomotic sutures are noted near the distal sigmoi d. No recurrent mass or obstruction. Abdominal wall: Negative. No hernia. Pelvis: Prostate gland is markedly enlarged extending over a length of 9 cm x 8.2 x 6.4 cm. Increased density in the bladder is from the recent IV contrast injection. Osseous structures: Osteochondrosis at L5-S1. L4 anterolisthesis by 5 mm. Facet joint arthritis L4-5 and L5-S1. CT/CT abdomen pelvis wo con [id number] IMPRESSION: 1. Distal sigmoid anastomotic sutures are present with no recurrent mass or ob struction. 2. No acute abdominal or pelvic abnormalities. 3. Bibasilar consolidations likely from Covid. 4. No ascites or adenopathy in the abdomen or pelvis. 5. Markedly enlarged prostate gland.
--- NOTE | 2021-02-16 15:06 | P.PN_ITS ---
Subjective Subjective: Interval history: Patient was seen this morning, he has no complaints, currently is on 12 L nasal cannula, denies any chest pain, no lightheadedness, no dizziness, no fevers, no abdominal pain Vitals/I&O/Wt Last Vital Signs Temp 97.7 F 02/16/21 12:00 Pulse 89 02/16/21 14:35 Resp 18 02/16/21 14:35 BP 149/84 02/16/21 12:00 Pulse Ox 94 02/16/21 14:35 02/16/21 02/16/21 02/16/21 06:59 14:59 22:59 Intake Total 780 / 780 Output Total 600 / 600 350 / 350 Balance -600 / -140 430 / 430 Physical Exam Const: COMMON NORMALS: no acute distress and patient oriented x3 Neck/C-Spine: COMMON NORMALS: no JVD Resp: COMMON NORMALS: normal respiratory effort and No retractions AUSCULTATION: diminished lung sounds diffuse Cardio: COMMON NORMALS: no JVD, regular rate, regular rhythm, S1 normal heart sound present and S2 normal heart sound present RATE: regular rate RHYTHM: regular rhythm HEART SOUNDS: S1 normal heart sound present and S2 normal heart sound present GI: COMMON NORMALS: Normal to inspection, nondistended, normoactive bowel sounds present, Soft to palpation and non-tender PALPATION: Yes Soft to palpation Extremity: COMMON NORMALS: no pedal edema Neuro: COMMON NORMALS: patient oriented x3 Psych: COMMON NORMALS: mental status grossly normal Data : 02/16/21 04:42 02/16/21 04:42 A&P Assessment and plan (1) Pneumonia due to severe acute respiratory syndrome coronavirus 2 (SARS-CoV-2): Status: Acute (2) Pulmonary embolism: Status: Acute Qualifiers: Acute cor pulmonale presence: unspecified Chronicity: acute Pulmonary embolism type: unspecified Qualified Code(s): I26.99 - Other pulmonary embolism without acute cor pulmonale (3) Acute respiratory failure with hypoxia: Status: Acute Additional A&P Information Acute hypoxic restaurant failure related to COVID-19, pulmonary embolism Worsening hypoxia Currently on 12 L, nonrebreather No active chest pain No conversational dyspnea Afebrile during my evaluation Continue remdesivir and Decadron Would like to monitor for next 24 hours in order to see if he would qualify for interleukin-6 inhibitor, of note his symptoms started on January, considering his history of cancer and chemotherapy he may be considered immunocompromise but his last chemotherapy session was 10 years ago, will need reevaluation in the morning his CRP is above 75 Added multivitamins Start Rocephin, azithromycin Acute pulmonary embolism Related to hypercoagulable state of COVID-19 Started on therapeutic dose of Lovenox High D-dimer Venous Doppler pending BNP 404 Cardiac echocardiogram shows EF of 65%, no regional wall abnormalities, grade 1 out of 4 diastolic dysfunction, mild LVH, right ventricle is normal in size and function Troponin XX 1, follow-up with second 6-hour 16.7 No active chest pain hemodynamically stable History of colon cancer with metastases to liver and lung Status post right lobectomy liver resection with implantation of seeds in his liver As per the patient he has been in remission for last 10 years We will obtain a CT scan of abdomen pelvis Full code Cardiac diet DVT prophylaxis currently on therapeutic dose of Lovenox Guarded prognosis Plan for today, continue physical therapy, continue remdesivir, Decadron, start antibiotic therapy, PT OT, monitor respiratory status Attestations Medical Necessity Statement*: Patient requires hospitalization due to acute respiratory failure secondary COVID-19 pneumonia, pulmonary emboli Coding Level of Care Code Acute Washroom Attendant for [facility] Diagnoses Pneumonia due to severe acute respiratory syndrome coronavirus 2 (SARS-CoV-2) U07.1; J12.82 Pulmonary embolism I26.99 Acute cor pulmonale presence: unspecified Chronicity: acute Pulmonary embolism type: unspecified Acute respiratory failure with hypoxia J96.01
[2021-02-16] MEDS: remdesivir 100 MG in sodium chloride 0.9% (100 ml) 100 ML IV (18:12)
[2021-02-16] MEDS: doxazosin 4 mg Tablet PO (21:05)
[2021-02-17] VITALS (9 sets, daily range): BP systolic 121–134; BP diastolic 72–85; PULSE 62–102; RESP 18–29; TEMP 36.6–36.8; O2SAT 88–95
[2021-02-17] MEDS: enoxaparin 100 mg/mL Syringe 90 MG SUBCUT ×2 (01:15→17:33)
[2021-02-17 05:36] LABS: Basophils % 0.3 %; Eosinophils # 0.1 10^3/uL (0.0-0.8); Eosinophils % 1.5 %; Hematocrit 40.1 % (42.0-52.0); Hemoglobin 13.2 g/dL (11.7-16.6); Lymphocytes % 10.1 %; Mean Corpuscular HGB Conc 32.9 g/dL (30.0-36.0); Mean Corpuscular Hemoglobin 31.1 pg (28.0-34.0); Mean Corpuscular Volume 94.4 fl (80-94); Mean Platelet Volume 10.4 fL (7.4-10.4); Monocytes # 0.6 10^3/uL (0.2-0.9); Monocytes % 6.4 %; Neutrophils # 7.46 10^3/uL (1.8-7.7); Nucleated Red Blood Cells % 0 %; Platelet Count 325 10^3/cmm (130-400); Red Blood Count 4.25 10^6/uL (4.1-5.3); Red Cell Distribution Width 12.6 % (12.1-15.1); White Blood Count 9.5 10^3/uL (4.0-10.0)
[2021-02-17 05:45] LABS: INR 3.99 (0.8-1.2)
[2021-02-17 05:46] LABS: Lactate (Lactic Acid level) 1.3 mmol/L (0.5-2.2)
[2021-02-17 05:59] LABS: Alanine Aminotransferase 25 U/L (0-41); Albumin Level 2.6 g/dL (3.5-5.2); Alkaline Phosphatase 105 IU/L (40-130); Anion Gap 11.2 (5-19); Aspartate Amino Transferase 14 U/L (0-40); Blood Urea Nitrogen 20 mg/dL (8-23); C Reactive Protein 29.9 mg/L (0.0-4.9); Calcium 8.1 mg/dL (8.5-10.5); Carbon Dioxide 24 mmol/L (22-29); Chloride 109 mmol/L (98-107); Globulin 3.2 g/dL (1.3-4.6); Glomerular Filtration Rate 135.6 mL/min (90-130); Glucose 96 mg/dL (65-115); Magnesium 2.3 mg/dL (1.7-2.3); Osmolality Calculated 292 mOsm/kg (285-295); Phosphorus 2.9 mg/dL (2.5-4.5); Potassium 4.2 mmol/L (3.5-5.1); Sodium 140 mmol/L (136-145); Total Bilirubin 0.2 mg/dL (0.15-1.2); Total Protein 5.8 g/dL (6.6-8.7)
[2021-02-17 06:01] LABS: NT Pro B Type Natriuretic Pept 99 pg/mL (0-125); Procalcitonin 0.07 ng/mL (0-0.5)
[2021-02-17 06:13] LABS: Ferritin 792 ng/mL (30-400)
[2021-02-17] MEDS: cholecalciferol (vitamin D3) 1,000 unit Tablet 1000 UNIT PO (09:00)
[2021-02-17] MEDS: ascorbic acid 500 mg Tablet PO ×2 (09:00→17:33)
[2021-02-17] MEDS: lisinopril 10 mg Tablet PO (09:00)
[2021-02-17] MEDS: zinc gluconate 50 mg Tablet PO (09:00)
[2021-02-17] MEDS: dexamethasone 4 mg Tablet 6 MG PO (09:00)
[2021-02-17] MEDS: sennosides-docusate Tablet 1 TAB PO (09:00)
[2021-02-17] MEDS: cefTRIAXone 1,000 MG in sodium chloride 0.9% (plus) 50 ML 100 MG IV (09:04)
--- NOTE | 2021-02-17 11:49 | P.PN_ITS ---
Subjective Subjective: Interval history: Patient was seen this morning, he had a shower early this morning, tells me that he is a bit short of breath when showering, overall he is feeling about the same, has a cough, no hemoptysis, no chest pain, Vitals/I&O/Wt Last Vital Signs Temp 98.3 F 02/17/21 08:00 Pulse 88 02/17/21 08:00 Resp 19 H 02/17/21 08:00 BP 126/76 02/17/21 08:00 Pulse Ox 89 L 02/17/21 08:00 02/16/21 02/17/21 02/17/21 22:59 06:59 14:59 Intake Total 720 / 1500 630 / 630 Output Total 550 / 900 650 / 650 Balance 170 / 600 -20 Physical Exam Const: COMMON NORMALS: no acute distress and patient oriented x3 Lymph: LYMPHATIC: no lymphadenopathy noted Resp: COMMON NORMALS: normal respiratory effort, No retractions, No use of accessory muscles and clear to auscultation bilaterally AUSCULTATION: clear to auscultation bilaterally Cardio: COMMON NORMALS: regular rate, regular rhythm, S1 normal heart sound present and S2 normal heart sound present RATE: regular rate RHYTHM: regul ar rhythm HEART SOUNDS: S1 normal heart sound present and S2 normal heart sound present GI: COMMON NORMALS: Normal to inspection, nondistended, normoactive bowel sounds present, Soft to palpation, non-tender and No hepatosplenomegaly present PALPATION: Yes Soft to palpation and Yes No hepatosplenomegaly present Extremity: COMMON NORMALS: no pedal edema Neuro: COMMON NORMALS: patient oriented x3 Data : 02/17/21 05:03 02/17/21 05:03 A&P Assessment and plan (1) Pneumonia due to severe acute respiratory syndrome coronavirus 2 (SARS-CoV-2): Status: Acute (2) Pulmonary embolism: Status: Acute Qualifiers: Acute cor pulmonale presence: unspecified Chronicity: acute Pulmonary embolism type: unspecified Qualified Code(s): I26.99 - Other pulmonary embolism without acute cor pulmonale (3) Acute respiratory failure with hypoxia: Status: Acute Additional A&P Information Acute hypoxic restaurant failure related to COVID-19, pulmonary embolism Currently on 10 L, nonrebreather No active chest pain No conversational dyspnea Continue remdesivir and Decadron Would like to monitor for next 24 hours in order to see if he would qualify for interleukin-6 inhibitor, of note his symptoms started on January, considering his history of cancer and chemotherapy he may be considered immunocompromise but his last chemotherapy session was 10 years ago, will need reevaluation in the morning his CRP has decreased to 29.9 Added multivitamins On Rocephin, azithromycin Acute pulmonary embolism Related to hypercoagulable state of COVID-19 Started on therapeutic dose of Lovenox High D-dimer Venous Doppler no evidence of DVT BNP 404 Cardiac echocardiogram shows EF of 65%, no regional wall abnormalities, grade 1 out of 4 diastolic dysfunction, mild LVH, right ventricle is normal in size and function Troponin XX 1, follow-up with second 6-hour 16.7 No active chest pain hemodynamically stable History of colon cancer with metastases to liver and lung Status post right lobectomy liver resection with implantation of seeds in his liver As per the patient he has been in remission for last 10 years Full code Cardiac diet DVT prophylaxis currently on therapeutic dose of Lovenox Guarded prognosis Plan for today, continue physical therapy, continue remdesivir, Decadron, antibiotic therapy, PT OT, monitor respiratory status Attestations Medical Necessity Statement*: Patient requires hospitalization due to acute respiratory failure sec to COVID-19, pulmonary embolism Coding Level of Care Code Acute Payer Specialist for [facility] Diagnoses Pneumonia due to severe acute respiratory syndrome coronavirus 2 (SARS-CoV-2) U07.1; J12.82 Pulmonary embolism I26.99 Acute cor pulmonale presence: unspecified Chronicity: acute Pulmonary embolism type: unspecified Acute respiratory failure with hypoxia J96.01
[2021-02-17] MEDS: azithromycin 500 MG in sodium chloride 0.9% 250 ML 250 MG IV (12:40)
--- NOTE | 2021-02-17 14:12 | PC.OT ---
OT EVALUATION ORDERS RECEIVED. PATIENT DOES NOT DISPLAY ANY DEFICITS IN ADL PERFORMANCE. IS KNOWLEDGEABLE IN PLB AND ENERGY CONSERVATION. NO FURTHER SKILLED OT REQUIRED AT THIS TIME.
--- NOTE | 2021-02-17 16:11 | PC.RESP ---
PULMONARY REHAB INFORMATION SENT TO PATIENT.
[2021-02-17] MEDS: remdesivir 100 MG in sodium chloride 0.9% (100 ml) 100 ML IV (17:33)
[2021-02-17] MEDS: doxazosin 4 mg Tablet PO (21:45)
[2021-02-18] VITALS (10 sets, daily range): BP systolic 98–138; BP diastolic 61–84; PULSE 69–99; RESP 16–25; TEMP 36.5–37.1; O2SAT 91–95
[2021-02-18] MEDS: enoxaparin 100 mg/mL Syringe 90 MG SUBCUT ×2 (00:56→13:40)
[2021-02-18 06:34] LABS: Basophils % 0.4 %; Eosinophils # 0.1 10^3/uL (0.0-0.8); Eosinophils % 1.4 %; Hematocrit 40.5 % (42.0-52.0); Hemoglobin 13.5 g/dL (11.7-16.6); Lymphocytes # 0.8 10^3/uL (0.8-4.8); Lymphocytes % 9.9 %; Mean Corpuscular HGB Conc 33.3 g/dL (30.0-36.0); Mean Corpuscular Hemoglobin 31.5 pg (28.0-34.0); Mean Corpuscular Volume 94.6 fl (80-94); Mean Platelet Volume 10.4 fL (7.4-10.4); Monocytes # 0.6 10^3/uL (0.2-0.9); Monocytes % 7.6 %; Neutrophils # 6.68 10^3/uL (1.8-7.7); Neutrophils % 78.8 %; Nucleated Red Blood Cells % 0 %; Platelet Count 339 10^3/cmm (130-400); Red Blood Count 4.28 10^6/uL (4.1-5.3); Red Cell Distribution Width 12.5 % (12.1-15.1); White Blood Count 8.5 10^3/uL (4.0-10.0)
[2021-02-18 06:47] LABS: Lactate (Lactic Acid level) 0.9 mmol/L (0.5-2.2)
[2021-02-18 06:58] LABS: INR 1.09 (0.8-1.2)
[2021-02-18 07:05] LABS: Alanine Aminotransferase 35 U/L (0-41); Albumin Level 2.7 g/dL (3.5-5.2); Alkaline Phosphatase 102 IU/L (40-130); Anion Gap 11.2 (5-19); Aspartate Amino Transferase 25 U/L (0-40); Blood Urea Nitrogen 18 mg/dL (8-23); C Reactive Protein 20.5 mg/L (0.0-4.9); Calcium 8.2 mg/dL (8.5-10.5); Carbon Dioxide 25 mmol/L (22-29); Chloride 107 mmol/L (98-107); Globulin 3.2 g/dL (1.3-4.6); Glomerular Filtration Rate 135.6 mL/min (90-130); Glucose 89 mg/dL (65-115); Magnesium 2.3 mg/dL (1.7-2.3); Osmolality Calculated 289 mOsm/kg (285-295); Phosphorus 3.2 mg/dL (2.5-4.5); Potassium 4.2 mmol/L (3.5-5.1); Sodium 139 mmol/L (136-145); Total Bilirubin 0.3 mg/dL (0.15-1.2); Total Protein 5.9 g/dL (6.6-8.7)
[2021-02-18] MEDS: ascorbic acid 500 mg Tablet PO ×2 (08:56→17:55)
[2021-02-18] MEDS: FUROsemide 10 mg/mL SDV 2mL 20 MG IVP (08:56)
[2021-02-18] MEDS: sennosides-docusate Tablet 1 TAB PO (08:56)
[2021-02-18] MEDS: zinc gluconate 50 mg Tablet PO (08:56)
[2021-02-18] MEDS: cholecalciferol (vitamin D3) 1,000 unit Tablet 1000 UNIT PO (08:56)
[2021-02-18] MEDS: dexamethasone 4 mg Tablet 6 MG PO (08:57)
[2021-02-18] MEDS: budesonide 0.5 mg/2 mL Neb INHALATION (09:44)
[2021-02-18] MEDS: cefTRIAXone 1,000 MG in sodium chloride 0.9% (plus) 50 ML 100 MG IV (11:31)
[2021-02-18] MEDS: azithromycin 500 MG in sodium chloride 0.9% 250 ML 250 MG IV (12:06)
--- NOTE | 2021-02-18 13:29 | PC.SOCIAL ---
IMm Update pg 2 of IMM updated via telephone w/ Natty.
--- NOTE | 2021-02-18 13:42 | P.PN_ITS ---
Subjective Subjective: Interval history: Patient was seen this morning, is in good spirits, he is down to 8 L, no fevers, chills, no nausea, no vomiting, is ambulating without significant shortness of breath Vitals/I&O/Wt Last Vital Signs Temp 98.8 F 02/18/21 12:21 Pulse 84 02/18/21 12:21 Resp 17 02/18/21 12:21 BP 109/76 02/18/21 12:21 Pulse Ox 92 02/18/21 12:21 02/17/21 02/18/21 02/18/21 22:59 06:59 14:59 Intake Total 590 / 1340 410 / 410 Output Total 750 / 1400 350 / 350 Balance -160 / -60 60 / 60 Physical Exam Const: COMMON NORMALS: no acute distress and patient oriented x3 Neck/C-Spine: COMMON NORMALS: no JVD Resp: COMMON NORMALS: normal respiratory effort, No retractions, No use of accessory muscles and clear to auscultation bilaterally AUSCULTATION: clear to auscultation bilaterally Cardio: COMMON NORMALS: no JVD, regular rate, regular rhythm, S1 normal heart sound present and S2 normal heart sound present RATE: regular rate RHYTHM: regular rhythm HEART SOUNDS: S1 normal heart sound present and S2 normal heart sound present GI: COMMON NORMALS: Normal to inspection, nondistended, normoactive bowel sounds present, Soft to palpation and non-tender PALPATION: Yes Soft to palpation Extremity: COMMON NORMALS: no pedal edema Neuro: COMMON NORMALS: patient oriented x3 Psych: COMMON NORMALS: mental status grossly normal Data : 02/18/21 06:04 02/18/21 06:04 A&P Assessment and plan (1) Pneumonia due to severe acute respiratory syndrome coronavirus 2 (SARS-CoV-2): Status: Acute (2) Pulmonary embolism: Status: Acute Qualifiers: Acute cor pulmonale presence: unspecified Chronicity: acute Pulmonary embolism type: unspecified Qualified Code(s): I26.99 - Other pulmonary embolism without acute cor pulmonale (3) Acute respiratory failure with hypoxia: Status: Acute Additional A&P Information Acute hypoxic restaurant failure related to COVID-19, pulmonary embolism Currently on 8 L No active chest pain No conversational dyspnea Continue remdesivir and Decadron Would like to monitor for next 24 hours in order to see if he would qualify for interleukin-6 inhibitor, of note his symptoms started on January, considering his history of cancer and chemotherapy he may be considered immunocompromise but his last chemotherapy session was 10 years ago, will need reevaluation in the morning his CRP has decreased to 20.5 Added multivitamins On Rocephin, azithromycin Acute pulmonary embolism Related to hypercoagulable state of COVID-19 Started on therapeutic dose of Lovenox High D-dimer Venous Doppler no evidence of DVT Cardiac echocardiogram shows EF of 65%, no regional wall abnormalities, grade 1 out of 4 diastolic dysfunction, mild LVH, right ventricle is normal in size and function Troponin XX 1, follow-up with second 6-hour 16.7 No active chest pain hemodynamically stable History of colon cancer with metastases to liver and lung Status post right lobectomy liver resection with implantation of seeds in his liver As per the patient he has been in remission for last 10 years Full code Cardiac diet DVT prophylaxis currently on therapeutic dose of Lovenox Guarded prognosis Plan for today, continue physical therapy, continue remdesivir, Decadron, antibiotic therapy, PT OT, monitor respiratory status Attestations Medical Necessity Statement*: Patient requires hospitalization for COVID-19 pneumonia Coding Level of Care Code Acute Chief Knowledge Officer for [facility] Diagnoses Pneumonia due to severe acute respiratory syndrome coronavirus 2 (SARS-CoV-2) U07.1; J12.82 Pulmonary embolism I26.99 Acute cor pulmonale presence: unspecified Chronicity: acute Pulmonary embolism type: unspecified Acute respiratory failure with hypoxia J96.01
[2021-02-18 15:34] LABS: NT Pro B Type Natriuretic Pept 88 pg/mL (0-125); Procalcitonin 0.07 ng/mL (0-0.5)
[2021-02-18 15:45] LABS: Ferritin 792 ng/mL (30-400)
[2021-02-18] MEDS: remdesivir 100 MG in sodium chloride 0.9% (100 ml) 100 ML IV (17:55)
[2021-02-18] MEDS: doxazosin 4 mg Tablet PO (21:12)
[2021-02-19] VITALS (11 sets, daily range): BP systolic 97–127; BP diastolic 61–82; PULSE 67–91; RESP 15–25; TEMP 36.6–36.8; O2SAT 86–96
[2021-02-19] MEDS: enoxaparin 100 mg/mL Syringe 90 MG SUBCUT ×2 (01:18→13:51)
[2021-02-19 07:16] LABS: Basophils % 0.3 %; Eosinophils # 0.1 10^3/uL (0.0-0.8); Eosinophils % 1.1 %; Hematocrit 41.8 % (42.0-52.0); Hemoglobin 13.4 g/dL (11.7-16.6); Lymphocytes # 1.1 10^3/uL (0.8-4.8); Lymphocytes % 11.6 %; Mean Corpuscular HGB Conc 32.1 g/dL (30.0-36.0); Mean Corpuscular Hemoglobin 31.6 pg (28.0-34.0); Mean Corpuscular Volume 98.6 fl (80-94); Mean Platelet Volume 10.4 fL (7.4-10.4); Monocytes % 10.8 %; Neutrophils # 7.14 10^3/uL (1.8-7.7); Neutrophils % 74.2 %; Nucleated Red Blood Cells % 0 %; Platelet Count 366 10^3/cmm (130-400); Red Blood Count 4.24 10^6/uL (4.1-5.3); Red Cell Distribution Width 12.6 % (12.1-15.1); White Blood Count 9.6 10^3/uL (4.0-10.0)
[2021-02-19 07:18] LABS: INR 1.02 (0.8-1.2)
[2021-02-19 07:38] LABS: Alanine Aminotransferase 55 U/L (0-41); Albumin Level 2.5 g/dL (3.5-5.2); Alkaline Phosphatase 102 IU/L (40-130); Anion Gap 11.5 (5-19); Aspartate Amino Transferase 31 U/L (0-40); Blood Urea Nitrogen 17 mg/dL (8-23); C Reactive Protein 14.3 mg/L (0.0-4.9); Calcium 8.3 mg/dL (8.5-10.5); Carbon Dioxide 28 mmol/L (22-29); Chloride 105 mmol/L (98-107); Globulin 3.2 g/dL (1.3-4.6); Glomerular Filtration Rate 113.5 mL/min (90-130); Glucose 84 mg/dL (65-115); Magnesium 2.5 mg/dL (1.7-2.3); Osmolality Calculated 291 mOsm/kg (285-295); Phosphorus 3.1 mg/dL (2.5-4.5); Potassium 4.5 mmol/L (3.5-5.1); Sodium 140 mmol/L (136-145); Total Bilirubin 0.2 mg/dL (0.15-1.2); Total Protein 5.7 g/dL (6.6-8.7)
[2021-02-19 07:47] LABS: Lactate (Lactic Acid level) 0.9 mmol/L (0.5-2.2)
[2021-02-19 08:03] LABS: NT Pro B Type Natriuretic Pept 50 pg/mL (0-125); Procalcitonin 0.05 ng/mL (0-0.5)
[2021-02-19 08:22] LABS: Ferritin 764 ng/mL (30-400)
[2021-02-19] MEDS: budesonide 0.5 mg/2 mL Neb INHALATION ×2 (09:32)
[2021-02-19] MEDS: cholecalciferol (vitamin D3) 1,000 unit Tablet 1000 UNIT PO (09:55)
[2021-02-19] MEDS: dexamethasone 4 mg Tablet 6 MG PO (09:55)
[2021-02-19] MEDS: ascorbic acid 500 mg Tablet PO ×2 (09:55→16:59)
[2021-02-19] MEDS: zinc gluconate 50 mg Tablet PO (09:55)
[2021-02-19] MEDS: lisinopril 10 mg Tablet PO (09:55)
[2021-02-19] MEDS: FUROsemide 10 mg/mL SDV 2mL 20 MG IVP (09:56)
[2021-02-19] MEDS: cefTRIAXone 1,000 MG in sodium chloride 0.9% (plus) 50 ML 100 MG IV (09:56)
[2021-02-19] MEDS: azithromycin 500 MG in sodium chloride 0.9% 250 ML 250 MG IV (10:44)
--- NOTE | 2021-02-19 11:55 | PM.PN ---
Subjective Subjective: Interval history: Patient was seen this morning, he sitting up to the side of bed, he is feeling a lot better, he is oxygen has been weaned down to 4 L at rest, 6 L with exertion, he is not sure if he is ready to get in the hospital today, but he does feel better Vitals/I&O/Wt Last Vital Signs Temp 97.9 F 02/19/21 08:30 Pulse 85 02/19/21 09:32 Resp 20 H 02/19/21 09:32 BP 97/62 02/19/21 08:30 Pulse Ox 86 L 02/19/21 11:01 02/18/21 02/19/21 02/19/21 22:59 06:59 14:59 Intake Total 600 / 1620 270 / 270 Output Total 800 / 1150 675 / 1825 Balance -200 / 470 -675 / -205 270 / 270 Physical Exam Const: COMMON NORMALS: no acute distress and patient oriented x3 Resp: COMMON NORMALS: normal respiratory effort, No retractions, No use of accessory muscles and clear to auscultation bilaterally AUSCULTATION: clear to auscultation bilaterally Cardio: COMMON NORMALS: regular rate, regular rhythm, S1 normal heart sound present and S2 normal heart sound present RATE: regular rate RHYTHM: regular rhythm HEART SOUNDS: S1 normal heart sound present and S2 normal heart sound present GI: COMMON NORMALS: Normal to inspection, nondistended, normoactive bowel sounds present, Soft to palpation, non-tender and No hepatosplenomegaly present PALPATION: Yes Soft to palpation and Yes No hepatosplenomegaly present Extremity: COMMON NORMALS: no pedal edema Neuro: COMMON NORMALS: patient oriented x3 Psych: COMMON NORMALS: mental status grossly normal Data : 02/19/21 06:36 02/19/21 06:36 A&P Assessment and plan (1) Pneumonia due to severe acute respiratory syndrome coronavirus 2 (SARS-CoV-2): Status: Acute (2) Pulmonary embolism: Status: Acute Qualifiers: Acute cor pulmonale presence: unspecified Chronicity: acute Pulmonary embolism type: unspecified Qualified Code(s): I26.99 - Other pulmonary embolism without acute cor pulmonale (3) Acute respiratory failure with hypoxia: Status: Acute Additional A&P Information Acute hypoxic restaurant failure related to COVID-19, pulmonary embolism Currently on 4 L at rest, 6 L with exertion No active chest pain No conversational dyspnea Completed remdesivir, continue Decadron Can likely discharge next 24 hours Added multivitamins On Rocephin, azithromycin Acute pulmonary embolism Related to hypercoagulable state of COVID-19 Started on therapeutic dose of Lovenox, transition to Eliquis on discharge High D-dimer Venous Doppler no evidence of DVT Cardiac echocardiogram shows EF of 65%, no regional wall abnormalities, grade 1 out of 4 diastolic dysfunction, mild LVH, right ventricle is normal in size and function Troponin XX 1, follow-up with second 6-hour 16.7 No active chest pain hemodynamically stable History of colon cancer with metastases to liver and lung Status post right lobectomy liver resection with implantation of seeds in his liver As per the patient he has been in remission for last 10 years Full code Cardiac diet DVT prophylaxis currently on therapeutic dose of Lovenox Guarded prognosis Plan for today, continue physical therapy, Decadron, antibiotic therapy, PT OT, monitor respiratory status Attestations Medical Necessity Statement*: Patient requires hospitalization for acute respiratory failure secondary COVID-19 Coding Level of Care Code Acute Crop Supervisor for [facility] Diagnoses Pneumonia due to severe acute respiratory syndrome coronavirus 2 (SARS-CoV-2) U07.1; J12.82 Pulmonary embolism I26.99 Acute cor pulmonale presence: unspecified Chronicity: acute Pulmonary embolism type: unspecified Acute respiratory failure with hypoxia J96.01
[2021-02-19] MEDS: doxazosin 4 mg Tablet PO (20:59)
[2021-02-20] VITALS (8 sets, daily range): BP systolic 107–133; BP diastolic 70–79; PULSE 74–106; RESP 16–22; TEMP 36.6–36.7; O2SAT 91–99
[2021-02-20] MEDS: enoxaparin 100 mg/mL Syringe 90 MG SUBCUT ×2 (02:02→12:46)
[2021-02-20 06:16] LABS: Basophils % 0.2 %; Eosinophils # 0.1 10^3/uL (0.0-0.8); Eosinophils % 0.7 %; Hematocrit 41.3 % (42.0-52.0); Hemoglobin 13.5 g/dL (11.7-16.6); Lymphocytes # 1.1 10^3/uL (0.8-4.8); Lymphocytes % 10.3 %; Mean Corpuscular HGB Conc 32.7 g/dL (30.0-36.0); Mean Corpuscular Hemoglobin 31.9 pg (28.0-34.0); Mean Corpuscular Volume 97.6 fl (80-94); Mean Platelet Volume 10.2 fL (7.4-10.4); Monocytes % 8.9 %; Neutrophils # 8.37 10^3/uL (1.8-7.7); Nucleated Red Blood Cells % 0 %; Platelet Count 403 10^3/cmm (130-400); Red Blood Count 4.23 10^6/uL (4.1-5.3); Red Cell Distribution Width 12.6 % (12.1-15.1); White Blood Count 10.7 10^3/uL (4.0-10.0)
[2021-02-20 06:44] LABS: NT Pro B Type Natriuretic Pept 37 pg/mL (0-125); Procalcitonin 0.06 ng/mL (0-0.5)
[2021-02-20 06:47] LABS: Alanine Aminotransferase 54 U/L (0-41); Albumin Level 2.7 g/dL (3.5-5.2); Alkaline Phosphatase 106 IU/L (40-130); Anion Gap 11.4 (5-19); Aspartate Amino Transferase 18 U/L (0-40); Blood Urea Nitrogen 19 mg/dL (8-23); C Reactive Protein 9.5 mg/L (0.0-4.9); Calcium 8.5 mg/dL (8.5-10.5); Carbon Dioxide 27 mmol/L (22-29); Chloride 106 mmol/L (98-107); Glomerular Filtration Rate 113.5 mL/min (90-130); Glucose 90 mg/dL (65-115); Magnesium 2.2 mg/dL (1.7-2.3); Osmolality Calculated 292 mOsm/kg (285-295); Phosphorus 3.6 mg/dL (2.5-4.5); Potassium 4.4 mmol/L (3.5-5.1); Sodium 140 mmol/L (136-145); Total Bilirubin 0.3 mg/dL (0.15-1.2); Total Protein 5.7 g/dL (6.6-8.7)
[2021-02-20] MEDS: dexamethasone 4 mg Tablet 6 MG PO (08:48)
[2021-02-20] MEDS: sennosides-docusate Tablet 1 TAB PO (08:48)
[2021-02-20] MEDS: lisinopril 10 mg Tablet PO (08:48)
[2021-02-20] MEDS: cholecalciferol (vitamin D3) 1,000 unit Tablet 1000 UNIT PO (08:48)
[2021-02-20] MEDS: ascorbic acid 500 mg Tablet PO (08:48)
[2021-02-20] MEDS: zinc gluconate 50 mg Tablet PO (08:48)
[2021-02-20] MEDS: cefTRIAXone 1,000 MG in sodium chloride 0.9% (plus) 50 ML 100 MG IV (08:49)
--- NOTE | 2021-02-20 08:55 | PC.CHAP ---
Pastoral Care Encounter/Spiritual Assessment Type of Contact [] Declined global climate change researcher visit [] Patient/Family/Request visit [] Outpatient visit [] Follow-up visit [] Physician referral [] Code/Alert [x] Routine visit [] Staff referral [] Actively dying [] Patient sleeping [] Family support [] [] Out of room [] Palliative care [] [] Receiving care in room [] Pre-surgical visit [] Trauma [] Long length of stay [] ICU visit [x] Other: 2a Relational/Emotional Strength [] Patient feels connected with others/family/visitors/staff [] Distress [] Loneliness/isolation [] Abandonment Spirituality of Patient [] Person of Irina [] Attends Orthodox of their Irina [] Believes in Prayer [] Reads Bible or Yarsani materials [] There are Spiritual issues to be addressed Director [employer] Interventions [x] Prayer [] Active listening [] Non-anxious presence [] Spiritual/emotional support [] Crisis/trauma care [] Spiritual counseling [] Bereavement support [] Provided bereavement packet [] Provided Bible/devotional materials [] Provided toy/stuffed animal, coloring book to patient or family member [] Provided Communion [] Anointing/[place] [] Salvation [x] Completed spiritual assessment [] Other: Impact on Illness or Injury [] Angry [] Fearful [] Anxious [] Often cries [] Exhaustion [] Unable to work [] Unable to attend nondenominational [] Unable to walk/stand [] Unable to read [] Unable to drive [] Unable to eat/drink [] Unable to sleep [] Unable to be with family [] Patient intubated [] Other: Summary have visited every day... cant eat bellpeppers.... very pleasant patient, resting well Time spent with patient
[2021-02-20] MEDS: azithromycin 500 MG in sodium chloride 0.9% 250 ML 250 MG IV (09:55)
[2021-02-20] MEDS: ipratropium-albuterol 3 mL Neb INHALATION ×2 (10:09→10:13)
[2021-02-20] MEDS: budesonide 0.5 mg/2 mL Neb INHALATION ×2 (10:09→10:13)
--- NOTE | 2021-02-20 10:15 | PC.RESP ---
RT Shift Note Frequent safety and respiratory rounds continue. Orders completed as indicated. Patient monitored pre and post treatments throughout shift. Patient [Did.] tolerate treatments appropriately. Condition [I.DidNotChange]. Patient and/or technical sales representatives educated on respiratory treatment and medications. Patient and/or technical sales representatives [verbalized understanding]. Will continue to monitor patient progress.
--- NOTE | 2021-02-20 12:49 | P.DS_ITS ---
Discharge Providers Date of Admission: 02/15/21 14:26 Date of Discharge: February 20, 2021 Attending Provider at Admission: Mathew Ramirez MD Attending Provider at Discharge: Mynor Gilbert MD Primary Care Provider: Subhash Candelario Diagnoses at Discharge Discharge Diagnosis (1) Pneumonia due to severe acute respiratory syndrome coronavirus 2 (SARS-CoV-2): Status: Acute (2) Pulmonary embolism: Status: Acute Qualifiers: Acute cor pulmonale presence: unspecified Chronicity: acute Pulmonary embolism type: unspecified Qualified Code(s): I26.99 - Other pulmonary embolism without acute cor pulmonale (3) Acute respiratory failure with hypoxia: Status: Acute Reason for Visit Reason for Visit: SOB, covid +, low o2 Hospital Course Hospital Course This is a 65-year-old male with a past medical history of hypertension, colon cancer with mets to the liver and lungs, status post right lobectomy, liver resection with implantation of seeds, who presents to [facility] due to shortness of breath Patient was admitted to [facility] for shortness of breath secondary to acute hypoxic respiratory failure secondary COVID-19 and pulmonary embolism. Patient was managed with Lovenox, remdesivir, Decadron, multivitamins, broad- spectrum antibiotic therapy, and clinically monitored. Likely patient's pulmonary embolism was secondary to hypercoagulable state associate with COVID- 19. cardiac echocardiogram showed EF of 65%, no regional wall motion abnormalities, grade 1 out of 4 diastolic dysfunction, right ventricular was normal in size and function. Patient clinically improved, was weaned down to 4 L at rest 6 L with exertion, remaining afebrile, ambulating without significant symptomatology, finished his course of remdesivir as an inpatient. Patient will be discharged home on Eliquis, Advair, albuterol, multivitamins, with close follow-up with primary care provider as outpatient. For his pulmonary embolism, he is to follow-up with pulmonary service in 1 month. For his hypercoagulab ility prophylaxis for COVID-19, given the pulmonary embolism above, discharged on Eliquis. Patient was advised to monitor for bloody or black stools, if so go to the emergency room. Patient was advised to continue to self isolate, socially distance, hand wash, and discuss with primary care provider about Covid vaccination. Physical Exam Const: COMMON NORMALS: no acute distress and patient oriented x3 Resp: COMMON NORMALS: normal respiratory effort, No retractions, No use of accessory muscles and clear to auscultation bilaterally AUSCULTATION: clear to auscultation bilaterally Cardio: COMMON NORMALS: regular rate, regular rhythm, S1 normal heart sound present and S2 normal heart sound present RATE: regular rate RHYTHM: regular rhythm HEART SOUNDS: S1 normal heart sound present and S2 normal heart sound present GI: COMMON NORMALS: Normal to inspection, nondistended, normoactive bowel sounds present, Soft to palpation and non-tender PALPATION: Yes Soft to palp ation Extremity: COMMON NORMALS: no pedal edema Neuro: COMMON NORMALS: patient oriented x3 Psych: COMMON NORMALS: mental status grossly normal Discharge Data Data Completed and Pending: Completed Studies During Hospitalization Category Date Time Status CT abdomen pelvis wo con [id number] Rout ine Cat Scan 02/16/21 11:[address] angio chest PE protcl [id number] Urge nt Cat Scan 02/15/21 13:16 Completed XR chest 1V jessica ble [id number] Stat Exams 02/15/21 12:30 [place] [id number] Routin e Ultrasound 02/16/21 06:00 Completed CV. echo complete * [id number] Routine Ultrasound 02/16/21 06:00 Completed Pending at discharge Category Date Time Status C Reactive Protei n AM LABS Lab 02/21/21 04:00 Ordered C Reactive Protei n AM LABS Lab 02/22/21 04:00 Ordered Complete Blood Co unt w/Auto AM LABS Lab 02/21/21 04:00 Ordered Complete Blood Co unt w/Auto AM LABS Lab 02/22/21 04:00 Ordered Comprehensive Met abolic Panel AM LA BS Lab 02/21/21 04:00 Ordered Comprehensive Met abolic Panel AM LA BS Lab 02/22/21 04:00 Ordered Magnesium AM LABS Lab 02/21/21 04:00 Ordered Magnesium AM LABS Lab 02/22/21 04:00 Ordered NT Pro B Type Ann Marie riuretic Pept QAM Lab 02/21/21 06:00 Ordered NT Pro B Type Ann Marie riuretic Pept QAM Lab 02/22/21 06:00 Ordered Phosphorus AM LAB S Lab 02/21/21 04:00 Ordered Phosphorus AM LAB S Lab 02/22/21 04:00 Ordered Procalcitonin AM LABS Lab 02/21/21 04:00 Ordered Procalcitonin AM LABS Lab 02/22/21 04:00 Ordered Labs from last 24 hours 02/20/21 02/20/21 02/20/21 06:00 06:00 06:00 WBC 10.7 H RBC 4.23 Hgb 13.5 Hct 41.3 L MCV 97.6 H MCH 31.9 MCHC 32.7 RDW 12.6 Plt Count 403 H MPV 10.2 Neut % (Auto) 78.0 Lymph % (Auto) 10.3 [place] % (Auto) 8.9 Eos % (Auto) 0.7 Baso % (Auto) 0.2 Neut # (Auto) 8.37 H Lymph # (Auto) 1.1 [place] # (Auto) 1.0 H Eos # (Auto) 0.1 Baso # (Auto) 0.0 Nucleated RBC % (a uto) 0 Nucleated RBCs # 0.0 Sodium 140 Potassium 4.4 Chloride 106 Carbon Dioxide 27 Anion Gap 11.4 BUN 19 Creatinine 0.7 GFR Calculation 113.5 Glucose 90 Calculated Osmolal ity 292 Calcium 8.5 Phosphorus 3.6 Magnesium 2.2 Total Bilirubin 0.3 AST 18 ALT 54 H Alkaline Phosphata se 106 C-Reactive Protein 9.5 H NT-Pro-B Natriuret Pep 37 Total Protein 5.7 L Albumin 2.7 L Globulin 3.0 Procalcitonin 0.06 Vitals: Last Vital Signs Temp 97.9 F 02/20/21 11:48 Pulse 106 H 02/20/21 11:48 Resp 20 H 02/20/21 11:48 BP 111/71 02/20/21 11:48 Pulse Ox 91 02/20/21 11:48 Discharge Plan Discharge Patient Disposition: Home Condition: Stable Prescriptions: New ascorbic acid (vitamin C) [Vitamin C] 500 mg Tablet 500 mg PO BID 30 Days Qty: 60 RF: 0 zinc gluconate 50 mg Tablet 50 mg PO DAILY 30 Days Qty: 30 RF: 0 fluticasone propion-salmeterol [Advair Diskus] 100-50 mcg/dose blister with device 1 inh inhalation DAILY Qty: 60 RF: 0 cholecalciferol (vitamin D3) 25 mcg (1,000 unit) Tablet 1,000 unit PO DAILY 30 Days Qty: 30 RF: 0 Eliquis DVT-PE Treat 30D Start 5 mg (74 tabs) tablets,dose pack See Rx Instructions .ROUTE .COMPLEX Qty: 74 RF: 0 Continued lisinopril 10 mg tablet 10 mg PO DAILY RF: 0 doxazosin 4 mg tablet 4 mg PO BEDTIME MDD SEE PHARMACY COMMENT RF: 0 albuterol sulfate 90 mcg/actuation HFA aerosol inhaler 2 puff INHALATION Q4H PRN (Reason: Shortness Of Breath) RF: 0 Discharge Orders: Discharge Order (Routine); Ordered 02/20/21 Ordered By: Mynor Gilbert Other Ambulatory Orders: DME: Oxygen (Order) Location: None Selected Ordered By: Mynor Gilbert Referrals: Subhash Candelario [Primary Care Provider] - Ernst Macedo MD [Physician] - 1 month Discharge Diet: Cardiac Discharge Activity: Resume usual activity Patient Instructions: Opioid Safety Activity Restrictions/Additional Instructions: -Please monitor for bloody or black stools if so go to emergency room -Please follow-up with primary care provider about COVID-19 vaccination -If any worsening shortness of breath or fevers, go to emergency room -Follow-up with primary care provider in 1 week -Follow-up with pulmonary in 1 month -Continue to be mobile Discharge Attestations Time Spent in Discharge Care*: greater than 30 min Quality Metrics Clinical Quality Measures During this hospital stay, did patient experience: VTE Contraindication to Overlap Therapy: Overlap treatment not indicated VTE Discharge Education: Education about anticoagulant therapy/Care Notes given Coding Level of Care Code Acute Chg FW DC note Diagnoses Pneumonia due to severe acute respiratory syndrome coronavirus 2 (SARS-CoV-2) U07.1; J12.82 Pulmonary embolism I26.99 Acute cor pulmonale presence: unspecified Chronicity: acute Pulmonary embolism type: unspecified Acute respiratory failure with hypoxia J96.01
--- NOTE | 2021-02-20 15:07 | PC.NURSE ---
patient given discharge instructions and verbalized understanding of instructions. patient's medications delivered meds to beds. 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
--- NOTE | 2021-02-20 15:49 | PC.NURSE ---
patient taken to private vehicle via wheelchair by marketing copywriter. patient's had patient's home oxygen in vehicle.
--- NOTE | 2021-02-20 16:15 | PC.SOCIAL ---
IMM Update pg2 of IMM reviewed w/ patient and copy provided.
--- NOTE | 2021-02-23 13:44 | PC.SOCIAL ---
discharge follow up call made, no answer, unable to leave message.
== END 2021-02-20 15:50 | disposition home or self-care (01) | DRG 177 ==
LOC: ER 15:02 → MS 2A 15:56
PROVIDERS: Admitting Provider Internal Medicine; Emergency Provider Physician Assistant; PCP Family Medicine; Visit Provider Family Medicine
DX: U07.1 COVID-19 (principal); J12.82 Pneumonia due to coronavirus disease 2019; I26.99 Other pulmonary embolism without acute cor pulmonale; J96.01 Acute respiratory failure with hypoxia; I10 Essential (primary) hypertension; Z85.038 Personal history of other malignant neoplasm of large intestine; Z90.49 Acquired absence of other specified parts of digestive tract; Z90.2 Acquired absence of lung [part of]; Z92.21 Personal history of antineoplastic chemotherapy; Z92.3 Personal history of irradiation; Z87.891 Personal history of nicotine dependence; Z79.51 Long term (current) use of inhaled steroids
CPT/HCPCS: 36415; 36600; 71045; 71275; 74176; 80048; 80051; 80053; 82330; 82728; 82805; 83605; 83615; 83735; 83880; 84100; 84145; 84484; 85025; 85378; 85384; 85610; 85730; 86140; 93005; 93306; 93970; 94640; 96372; 96374; 97161; 99285; J0456; J0696; J1100; J1650; J1940; J3535; J7050; J7626; J8540; Q9967

== ENCOUNTER 2021-05-29 12:42 | Outpatient (CLI) | payer MEDICARE, SELFPAY ==
--- NOTE | 2021-05-29 13:00 | CT_ITS ---
WS: [id number] CT CHEST WITHOUT INTRAVENOUS CONTRAST HISTORY: resolution of COVID, history of lung cancer. TECHNIQUE: Contiguous 5 mm axial imaging performed on the thorax. Coronal and sagittal reformats are submitted. All CT scans at [facility] use at least one of these dose optimization techniques: automated exposure control; mA and/or kV adjustment per patient size (includes targeted exams where dose is matched to clinical indication); or iterative reconstruction. CONTRAST: None DLP: 1222.01 mGycm COMPARISON: 02/15/2021 Lungs and central airway: Status post LEFT upper lobectomy. Mild volume loss in the LEFT lung. Marked improvement in the aeration of both lungs since 02/15/2021. There is some very minimal groundglass at tenuation periphery of the RIGHT upper lobe. Mild chronic interstitial thickening at the LEFT lung ba se. No suspicious mass or nodule. Pleura: Normal. No pleural effusion. Heart and pericardium: Heart is mildly enlarged. Mild pericardial thickening. Mediastinum and umair: Numerous mediastinal and hilar lymph nodes. Majority of these lymph nodes have either stayed the same or improved slightly in size. Central lymph nodes at the hilar regions are dif ficult to visualize due to overlapping vascular structures. Largest lymph nodes measure up to 12 mm i n diameter. Vessels: Normal size aortic and pulmonary artery. No coronary artery calcifications. Chest wall and lower neck: No soft tissue masses. Upper abdomen: Small hiatal hernia. Hepatic steatosis. No adrenal mass. Osseous structures: Mild thoracic spondylosis. CT/CT chest wo con [id number] IMPRESSION: 1. Status post LEFT upper lobectomy. 2. Significant improvement in aeration of both lungs since the prior study. Ve ry minimal groundglass attenuation within the periphery of the RIGHT upper lobe . 3. Improving but persistent indeterminate mediastinal and hilar lymph nodes. P robably reactive. 4. Mild cardiomegaly.
== END 2021-05-29 12:43 | disposition home or self-care (01) ==
PROVIDERS: PCP Family Medicine; Visit Provider Internal Medicine Pulmonary Disease
DX: U07.1 COVID-19 (principal); I26.99 Other pulmonary embolism without acute cor pulmonale; J12.82 Pneumonia due to coronavirus disease 2019; Z90.2 Acquired absence of lung [part of]; I51.7 Cardiomegaly
CPT/HCPCS: 71250